=== PATIENT | male | born 1985 | race Two or more races ===

== ENCOUNTER 2021-06-07 09:41 | Outpatient (CLI) | payer OTHER | END 2021-06-07 09:47 | disposition home or self-care (01) | LOC: LAB 09:41 | PROVIDERS: ATTEND Obstetrics & Gynecology | DX: S52.022A Displaced fracture of olecranon process without intraarticular extension of left ulna, initial encounter for closed fracture (principal) ==

== ENCOUNTER → 2021-06-07 10:13 | Outpatient (CLI) | payer OTHER | END | disposition home or self-care (01) | LOC: RAD 10:13 | DX: M25.522 Pain in left elbow (principal); S52.022A Displaced fracture of olecranon process without intraarticular extension of left ulna, initial encounter for closed fracture ==

== ENCOUNTER 2021-07-27 10:41 | Outpatient (CLI) | payer OTHER | END 2021-07-27 11:14 | disposition home or self-care (01) | LOC: RAD 10:41 | DX: M25.522 Pain in left elbow (principal) ==